=== PATIENT | female | born 1945 | race Caucasian/White ===

== ENCOUNTER 2016-11-06 09:53 | Emergency (ER) | payer MEDICARE ==
[~2016-11-06] VITALS: Ht 157.5 cm; Wt 47.0 kg
[~2016-11-06 09:53] MED LIST: CETI10 PO; DIAZ2 PO; IBUP400 PO; NEXI20CA PO; TRAM37.52 PO; TYLE500T PO; VESI5TAB PO
[2016-11-06 09:57] VITALS: BP 159/96; PULSE 122; RESP 16; TEMP 98.3; O2SAT 97
[2016-11-06] MEDS ORDERED: DIAZ2 PO (10:27)
[2016-11-06] MEDS ORDERED: NEXI20CA PO (10:27)
[2016-11-06] MEDS ORDERED: TRAM50TA PO (10:27)
[2016-11-06] MEDS ORDERED: LEVO500T3 PO (10:27)
[2016-11-06] MEDS ORDERED: VESI5TAB PO (10:27)
[2016-11-06] MEDS ORDERED: FLUT1SPR5 EACH NARE (10:27)
[2016-11-06] MEDS ORDERED: ZYRT10CA PO (10:27)
[2016-11-06] MEDS ORDERED: TYLE325T PO (10:28)
[2016-11-06 10:56] LABS: BLOOD, URINE TRACE (NEG); GLUCOSE,URINE NEG (NEG); KETONE, URINE NEG (NEG); NITRITE,URINE NEG (NEG)
[2016-11-06 11:00] LABS: METHOD OF COLLECTION CLEAN CATCH
[2016-11-06 11:01] LABS: COMMENT (UR) CULT NOT INDICATED; CULTURE IF INDICATED CULT NOT INDICATED; SQUAMOUS EPITHELIAL CELL URINE 0-5 /hpf (0-5); URINE COLOR YELLOW (YELLW/STRAW); WBC, URINE 0-2 /hpf (0-5)
[2016-11-06 11:14] LABS: AUTOMATED NEUTROPHIL # 6.1 TH/MM3 (1.8-7.7); BASOPHIL % 0.5 % (0.0-2.0); EOSINOPHIL # 0.1 TH/MM3 (0-0.4); EOSINOPHIL % 1.1 % (0.0-4.0); HEMATOCRIT 46.9 % (35.0-46.0); LYMPH % 16.8 % (9.0-44.0); LYMPHOCYTE # 1.3 TH/MM3 (1.0-4.8); MEAN CELL VOLUME 88.6 FL (80.0-100.0); MEAN CORPUSCULAR HEMOGLOBIN 28.1 PG (27.0-34.0); MEAN CORPUSCULAR HGB CONC 31.7 % (32.0-36.0); MONO % 6.5 % (0.0-8.0); NEUT % 75.1 % (16.0-70.0); PLATELET COUNT 285 TH/MM3 (150-450); RED CELL DISTRIBUTION WIDTH 13.3 % (11.6-17.2)
[2016-11-06 11:18] LABS: HEMO FLAGS DIFF FINAL
--- NOTE | 2016-11-06 11:18 | RADHPO ---
EXAM DATE/TIME: 11/06/2016 10:50 [place] COMPARISON: No previous studies available for comparison. INDICATIONS : Right flank pain. ORAL CONTRAST: No oral contrast ingested. RADIATION DOSE: 5.46 CTDIvol (mGy) MEDICAL HISTORY : Gastritis. Scoliosis. Polio. SURGICAL HISTORY : Inguinal hernia repair. ENCOUNTER: Initial ACUITY: 1 day PAIN SCALE: 10/10 LOCATION: Right flank TECHNIQUE: Volumetric scanning of the abdomen and pelvis was performed. Using automated exposure control and ad justment of the mA and/or kV according to patient size, radiation dose was kept as low as reasonably achievable to obtain optimal diagnostic quality images. FINDINGS: CT Abdomen: The liver, spleen, pancreas, kidneys, adrenals are unremarkable. There is no evidence for any appreciable pathological adenopathy, free fluid, or bowel obstruction. There is no evidence for any stones in the kidneys or the course of the ureters on either side. There is no hydronephrosis. CT pelvis: There is no evidence for mass, abscess formation, or any significant adenopathy within the pelvis. There are scattered diverticuli mainly in the sigmoid colon without definite signs of divert iculitis. There is moderate amount of stool throughout the colon. CONCLUSION: Scattered diverticuli and stool throughout the colon, otherwise unremarkable. Tigre Perez MD on November 06, 2016 at 11:13 Board Certified Radiologist. This report was verified electronically.
[2016-11-06 11:23] LABS: CHLORIDE 102 MEQ/L (98-107); POTASSIUM 3.8 MEQ/L (3.5-5.1); SODIUM (NA) 142 MEQ/L (136-145)
[2016-11-06 11:26] LABS: ANION GAP 6 MEQ/L (5-15); BICARBONATE 33.8 MEQ/L (21.0-32.0); BLOOD UREA NITROGEN 9 MG/DL (7-18)
[2016-11-06 11:29] LABS: ALT (GPT) 16 U/L (10-53); AST (GOT) 12 U/L (15-37)
[2016-11-06 11:30] LABS: GLOMERULAR FILTRATION RATE 81 ML/MIN (>89)
[2016-11-06 11:31] LABS: TOTAL BILIRUBIN ADULT 0.3 MG/DL (0.2-1.0)
[2016-11-06 11:32] LABS: ALKALINE PHOSPHATASE 76 U/L (45-117)
--- NOTE | 2016-11-06 11:57 | PD ---
HPI Chief Complaint: Abdominal Pain Time Seen by Provider: 10:23 Travel History International Travel<30 days: No Contact w/Intl Traveler<30days: No Traveled to known affect area: No History of Present Illness HPI This 71-year-old woman presents to the emergency department complaining of lower abdominal pain one the right side with urinary symptoms ongoing for the past week. Patient is multiple-related complaints. She states she's had right leg pain for the past 4 years, presently worse. She is pain in the right lower abdomen now that goes around to the back and radiates into the leg. She started feeling ill about a week or so ago with some lower abdominal discomfort , frequent urination, but she had a bladder infection. She called her primary doctor and she started on Levaquin. She's been on Levaquin for 4 days now. We' ll past 3 days she's had worsening symptoms, more pain in the right lower quadrant, more radiation into her back. No fevers or chills. Review of systems positive for chronic constipation with small hard stools. No recent change. History Past Medical History Narrative Medical GERD/gastritis Urinary incontinence Possible hypertension Tetanus Vaccination: > 5 Years Influenza Vaccination: No Social History Alcohol Use: No Tobacco Use: No Allergies-Medications (Allergen,Severity, Reaction): Coded Allergies: Penicillin (Verified Allergy, Severe, Hives, 11/06/16) Sulfa (Verified Allergy, Severe, Hives, 11/06/16) Reported Meds & Prescriptions Reported Meds & Active Scripts Active Reported Tylenol (Acetaminophen) 325 Mg Tab 650 Mg PO Q4H PRN Flonase Nasal [place] (Fluticasone Nasal [place]) 50 Mcg/Act [place] 50 Mcg EACH NARE BID Valium (Diazepam) 2 Mg Tab 2 Mg PO TID PRN Zyrtec Allergy (Cetirizine HCl) 10 Mg Cap 10 Mg PO DAILY Vesicare (Solifenacin) 5 Mg Tab 5 Mg PO DAILY Tramadol (Tramadol HCl) 50 Mg Tab 50 Mg PO Q8H PRN Nexium (Esomeprazole DR) 20 Mg Capdr 22.3 Mg PO DAILY Levofloxacin 500 Mg Tab 500 Mg PO DAILY Review of Systems Except as stated in HPI: all other systems reviewed are Neg Physical Exam Narrative GENERAL: Well-appearing 71-year-old woman, no acute distress. SKIN: Focused skin assessment warm/dry. HEAD: Atraumatic. Normocephalic. EYES: Pupils equal and round. No scleral icterus. No injection or drainage. ENT: No nasal bleeding or discharge. Mucous membranes pink and moist. NECK: Trachea midline. No JVD. CARDIOVASCULAR: Regular rate and rhythm. No murmur appreciated. RESPIRATORY: No accessory muscle use. Clear to auscultation. Breath sounds equal bilaterally. GASTROINTESTINAL: Abdomen flat and soft. No significant tenderness. MUSCULOSKELETAL: No obvious deformities. No clubbing. No cyanosis. No edema. NEUROLOGICAL: Awake and alert. No obvious cranial nerve deficits. Motor grossly within normal limits. Normal speech. Data Data Last Documented VS Vital Signs Date Time Temp Pulse Resp B/P Pulse Ox O2 Delivery O2 Flow Rate FiO2 11/06/16 09:57 98.3 122 16 159/96 97 Orders Complete Blood Count With Diff (11/06/16 10:43) Comprehensive Metabolic Panel (11/06/16 10:43) Urinalysis - C+S If Indicated (11/06/16 10:43) Iv Access Insert/Monitor (11/06/16 10:43) Ct Abd/Pel W/O Iv Contrast (11/06/16 ) Labs Laboratory Tests Test 11/06/16 11/06/16 10:50 11:05 Urine Collection Type CLEAN CATCH Urine Color YELLOW Urine Turbidity CLEAR Urine pH 6.0 Urine Specific [place] 1.016 Urine Protein NEG mg/dL Urine Glucose (UA) NEG mg/dL Urine Ketones NEG mg/dL Urine Occult Blood TRACE Urine Nitrite NEG Urine Bilirubin NEG Urine Leukocyte Esterase NEG Urine WBC 0-2 /hpf Urine Squamous Epithelial 0-5 /hpf Cells Microscopic Urinalysis Comment CULT NOT INDICATED Urine Collection Time 10:50 White Blood Count 8.0 TH/MM3 Red Blood Count 5.30 MIL/MM3 Hemoglobin 14.9 GM/DL Hematocrit 46.9 % Mean Corpuscular Volume 88.6 FL Mean Corpuscular Hemoglobin 28.1 PG Mean Corpuscular Hemoglobin 31.7 % Concent Red Cell Distribution Width 13.3 % Platelet Count 285 TH/MM3 Mean Platelet Volume 7.6 FL Neutrophils (%) (Auto) 75.1 % Lymphocytes (%) (Auto) 16.8 % Monocytes (%) (Auto) 6.5 % Eosinophils (%) (Auto) 1.1 % Basophils (%) (Auto) 0.5 % Neutrophils # (Auto) 6.1 TH/MM3 Lymphocytes # (Auto) 1.3 TH/MM3 Monocytes # (Auto) 0.5 TH/MM3 Eosinophils # (Auto) 0.1 TH/MM3 Basophils # (Auto) 0.0 TH/MM3 CBC Comment DIFF FINAL Differential Comment Sodium Level 142 MEQ/L Potassium Level 3.8 MEQ/L Chloride Level 102 MEQ/L Carbon Dioxide Level 33.8 MEQ/L Anion Gap 6 MEQ/L Blood Urea Nitrogen 9 MG/DL Creatinine 0.71 MG/DL Estimat Glomerular Filtration 81 ML/MIN Rate Random Glucose 110 MG/DL Calcium Level 9.7 MG/DL Total Bilirubin 0.3 MG/DL Aspartate Amino Transf 12 U/L (AST/SGOT) Alanine Aminotransferase 16 U/L (ALT/SGPT) Alkaline Phosphatase 76 U/L Total Protein 8.1 GM/DL Albumin 3.9 GM/DL [facility] Medical Decision Making Medical Screen Exam Complete: Yes Emergency Medical Condition: Yes Interpretation(s) LABS: CBC unremarkable. CMP generally unremarkable. UA was some trace occult blood. CT abdomen and pelvis: Scattered diverticuli stool throughout the colon. Otherwise unremarkable. Differential Diagnosis Renal lithiasis, UTI, radicular back pain, appendicitis, diverticulitis, shingles, other Narrative Course Medical decision-making 71-year-old woman presents emergent department with lower abdominal pain, one on the right side, some urinary symptoms. She's been completing Levaquin. Etiology is unclear. FINAL: Etiology unclear. Suspect musculoskeletal. We'll give recommendations to take acetaminophen with her tramadol. She does redness and at times as well. Also give her recommendations for stool regimen. Diagnosis Primary Impression: Abdominal pain with radiation to back Additional Instructions: Drink plenty of fluids stay well-hydrated. Follow-up with your primary doctor in the next 2-4 days. Return to the emergency department for any new or worsening symptoms. For your pain, take 2 [id number] Tylenol with your tramadol 3 times daily. For constipation, take MiraLAX daily, or Senokot or Mikayla-Colace as needed. A few of worsening constipation, take magnesium citrate, one bottle over-the- counter. Med/Other Pt SpecificInfo: No Change to Meds Disposition: DISCHARGE HOME Condition: Stable David Lomeli MD Nov 06, 2016 11:57
[2016-11-06 12:24] VITALS: BP 197/95; PULSE 98; RESP 14; O2SAT 95
== END 2016-11-06 12:42 | disposition home or self-care (01) ==
LOC: PHED 09:53
DX: R10.31 Right lower quadrant pain (principal); M54.5 Low back pain; Z87.19 Personal history of other diseases of the digestive system; Z87.448 Personal history of other diseases of urinary system
CPT/HCPCS: 74176; 80053; 81001; 85025